=== PATIENT | female | born 1960 | race Caucasian/White ===

== ENCOUNTER 2022-04-14 11:20 | Emergency (ER) | payer MEDICARE, MEDICAID ==
[~2022-04-14] VITALS: Ht 149.9 cm; Wt 140.0 kg
[2022-04-14] MEDS ORDERED: ondansetron/PF 4mg/2ml inj IV ONE (11:40)
[2022-04-14] MEDS ORDERED: fentaNYL/PF 50MCG/1 ML 2ML syringe IV ONE (11:40)
[2022-04-14] MEDS ORDERED: normal saline 1000ML IV soln IVB ONE (11:40)
[2022-04-14 12:43] VITALS: BP 147/71
--- NOTE | 2022-04-14 13:34 | NUR ---
[facility] TIME IS 1400.
== END 2022-04-14 14:26 | disposition home or self-care (01) ==
LOC: ER 11:20
DX: S72.491A Other fracture of lower end of right femur, initial encounter for closed fracture (principal); S80.01XA Contusion of right knee, initial encounter; S00.81XA Abrasion of other part of head, initial encounter; G80.9 Cerebral palsy, unspecified; I10 Essential (primary) hypertension; E11.9 Type 2 diabetes mellitus without complications; Z88.8 Allergy status to other drugs, medicaments and biological substances; Z74.01 Bed confinement status; W05.0XXA Fall from non-moving wheelchair, initial encounter; Y93.89 Activity, other specified; Y92.89 Other specified places as the place of occurrence of the external cause; Y99.8 Other external cause status
CPT/HCPCS: 29530; 73552; 96361; 96374; 96375; 99284; J2405; J3010; J7030

== ENCOUNTER 2022-07-09 14:31 | Emergency (ER) | payer MEDICARE, MEDICAID ==
[~2022-07-09] VITALS: Ht 149.9 cm; Wt 72.7 kg
[2022-07-09 14:53] VITALS: BP 126/70
--- NOTE | 2022-07-09 17:20 | NUR ---
CAREGIVER AT BEDSIDE
[2022-07-09] MEDS ORDERED: bacitracin 15gm ointment TP ONE (19:10)
== END 2022-07-09 19:27 | disposition home or self-care (01) ==
LOC: ER 14:31
DX: S90.415A Abrasion, left lesser toe(s), initial encounter (principal); I10 Essential (primary) hypertension; E11.9 Type 2 diabetes mellitus without complications; Z88.6 Allergy status to analgesic agent; Z88.8 Allergy status to other drugs, medicaments and biological substances; X58.XXXA Exposure to other specified factors, initial encounter; Y93.89 Activity, other specified; Y92.89 Other specified places as the place of occurrence of the external cause; Y99.8 Other external cause status
CPT/HCPCS: 73630; 99283

== ENCOUNTER 2023-04-15 20:21 | Emergency (ER) | payer MEDICARE, MEDICAID ==
[~2023-04-15] VITALS: Ht 149.9 cm; Wt 65.9 kg
[2023-04-15 21:09] LABS: BASOPHILS % (AUTO) 0.4 % (0-1); EOSINOPHILS # (AUTO) 0.2 X10'3 (0-0.9); EOSINOPHILS % (AUTO) 2.1 % (0-6); HEMATOCRIT 36.1 % (35.0-45.0); HEMOGLOBIN 12.2 g/dl (12.0-16.0); LYMPHOCYTES # (AUTO) 1.9 X10'3 (1.1-4.8); LYMPHOCYTES % (AUTO) 18.1 % (21-51); MEAN CORPUSCULAR HEMOGLOBIN 31.5 PG (27.0-31.0); MEAN CORPUSCULAR HGB CONC 33.7 g/dL (33.0-36.5); MEAN CORPUSCULAR VOLUME 93.5 FL (78-98); MEAN PLATELET VOLUME 7.7 FL (7.4-10.4); MONOCYTES # (AUTO) 0.6 X10'3 (0-0.9); MONOCYTES % (AUTO) 5.9 % (2-12); NEUTROPHILS # (AUTO) 7.8 X10'3 (1.8-7.7); NEUTROPHILS % (AUTO) 73.5 % (42-75); PLATELET COUNT 270 X10'3 (140-440); RED BLOOD COUNT 3.86 X10'6 (4.20-5.60); RED CELL DISTRIBUTION WIDTH 13.8 % (11.5-14.5); WHITE BLOOD COUNT 10.6 X10'3 (4.5-11.0)
[2023-04-15 21:17] LABS: ALANINE AMINOTRANSFERASE 22 U/L (12-78); ALBUMIN 3.6 G/DL (3.4-5.0); ALBUMIN/GLOBULIN RATIO 0.9 (1.1-1.5); ALKALINE PHOSPHATASE 66 IU/L (46-116); ANION GAP 8 (8-16); ASPARTATE AMINO TRANSFERASE 14 U/L (10-37); BILIRUBIN,TOTAL 0.4 MG/DL (0.1-1.0); BLOOD UREA NITROGEN 17 MG/DL (7-18); BUN/CREATININE RATIO 16.2 (10.0-20.0); CHLORIDE 102 MMOL/L (99-107); CREATININE 1.05 MG/DL (0.40-0.90); GLUCOSE 139 MG/DL (70-104); POTASSIUM 3.9 MMOL/L (3.5-5.1); SODIUM 138 MMOL/L (135-145); TOTAL CARBON DIOXIDE 28.1 MMOL/L (24-32); TOTAL PROTEIN 7.7 G/DL (6.4-8.2); eGFR 53 ML/MIN
[2023-04-15 21:46] LABS: CLARITY,URINE CLEAR (Clear); COLOR,URINE YELLOW (Yellow); GLUCOSE, URINE NEGATIVE (Neg); KETONES,URINE NEGATIVE (Neg); LEUKOCYTE ESTERASE ,URINE NEGATIVE (Neg); NITRITES, URINE NEGATIVE (Neg); OCCULT BLOOD,URINE TRACE-INTACT (Neg); PROTEIN,URINE NEGATIVE (Neg); UROBILINOGEN,URINE 0.2 E.U/dL (0.2-1.0)
[2023-04-15 22:00] LABS: UA COLLECTION TYPE STRAIGHT CATH
[2023-04-15] MEDS ORDERED: DOXY-11 PO (22:01)
[2023-04-15] MEDS ORDERED: MYCOL15O TOP (22:01)
[2023-04-15 22:03] LABS: BACTERIA,URINE NONE SEEN /HPF (Neg); HYALINE CASTS 0-3 /LPF (NEGATIVE); MUCUS STRANDS MODERATE /LPF (Neg); RBC,URINE 0-2 /HPF (0-2); SQUAMOUS EPITHELIAL CELL,UR FEW /LPF (FEW); WBC,URINE 0-4 /HPF (0-4)
[2023-04-15] MEDS ORDERED: SULF1TAB49 PO (22:04)
[2023-04-15 22:05] VITALS: BP 149/77
== END 2023-04-15 23:52 | disposition home or self-care (01) ==
LOC: ER 20:21
DX: B36.8 Other specified superficial mycoses (principal)
CPT/HCPCS: 36415; 80053; 81001; 83605; 84145; 85025; 93005; 99283; 99284